=== PATIENT | male | born 1965 | race Caucasian/White ===

== ENCOUNTER 2018-05-09 16:05 | Outpatient (REF) | payer MEDICAID, SELFPAY ==
[2018-05-09 21:45] LABS: Anion Gap 9.2 mmol/L (3-11); BUN 14 mg/dL (7-18); CO2 28.8 mmol/L (21.0-32.0); CREATININE 1.41 mg/dL (0.70-1.30); Calcium 9.2 mg/dL (8.5-10.1); Chloride 98 mmol/L (98-107); Cholesterol 152 mg/dL (50-200); Estimated GFR 52.78 (mL/min/1.73m2); Glucose 94 mg/dL (70-100); HDL Cholesterol 32 mg/dL (40-60); LDL CHOLESTEROL 106 mg/dL (<100); Potassium 3.7 mmol/L (3.5-5.1); Sodium 136 mmol/L (136-145); TSH (W/Ref FT4) 5.53 uIU/mL (0.358-3.74); Triglyceride 113 mg/dL (30-150)
[2018-05-09 22:06] LABS: FREE T4 1.02 ng/dL (0.76-1.46)
== END 2018-05-09 16:25 ==
LOC: NCHCN 16:05
PROVIDERS: PCP Nurse Practitioner Family; Visit Provider Nurse Practitioner Family
DX: I10 Essential (primary) hypertension (principal); E03.9 Hypothyroidism, unspecified; R21 Rash and other nonspecific skin eruption; I87.8 Other specified disorders of veins; B35.1 Tinea unguium; Z86.718 Personal history of other venous thrombosis and embolism; E66.9 Obesity, unspecified; R06.83 Snoring
CPT/HCPCS: 80048; 80061; 83721; 84439; 84443

== ENCOUNTER 2019-04-19 21:51 | Outpatient (REF) | payer MEDICAID, SELFPAY ==
[2019-04-19 22:28] LABS: ALT 25 U/L (16-63); AST 18 U/L (15-37); Albumin 3.9 g/dL (3.4-5.0); Alkaline Phosphatase 96 U/L (46-116); Anion Gap 10.4 mmol/L (3-11); BUN 10 mg/dL (7-18); Bilirubin, Total 0.3 mg/dL (0.2-1.0); CO2 28.6 mmol/L (21.0-32.0); CREATININE 1.42 mg/dL (0.70-1.30); Calcium 9.3 mg/dL (8.5-10.1); Calculated LDL 57 mg/dL; Chloride 98 mmol/L (98-107); Cholesterol 111 mg/dL (50-200); Estimated GFR 52.15 (mL/min/1.73m2); Glucose 84 mg/dL (70-100); HDL Cholesterol 36 mg/dL (40-60); Potassium 3.6 mmol/L (3.5-5.1); Sodium 137 mmol/L (136-145); TSH (W/Ref FT4) 6.16 uIU/mL (0.36-3.74); Total Protein 8.1 g/dL (6.4-8.2); Triglyceride 91 mg/dL (30-150)
[2019-04-19 22:45] LABS: FREE T4 1.07 ng/dL (0.76-1.46)
== END 2019-04-19 22:11 ==
LOC: NCHCN 21:51
PROVIDERS: PCP Nurse Practitioner Family; Visit Provider Nurse Practitioner Family
DX: I10 Essential (primary) hypertension (principal); R06.09 Other forms of dyspnea; F32.9 Major depressive disorder, single episode, unspecified; F43.20 Adjustment disorder, unspecified; R06.83 Snoring; E03.9 Hypothyroidism, unspecified; Z86.718 Personal history of other venous thrombosis and embolism; M54.5 Low back pain
CPT/HCPCS: 80053; 80061; 83036; 84439; 84443

== ENCOUNTER 2019-06-28 10:26 | Outpatient (REF) | payer MEDICAID, SELFPAY ==
[2019-06-28 12:40] LABS: TSH (W/Ref FT4) 0.11 uIU/mL (0.36-3.74)
[2019-06-28 13:07] LABS: FREE T4 1.93 ng/dL (0.76-1.46)
== END 2019-06-28 10:46 ==
LOC: NCHCN 10:26
PROVIDERS: PCP Nurse Practitioner Family; Visit Provider Nurse Practitioner Family
DX: E03.9 Hypothyroidism, unspecified (principal); R73.03 Prediabetes; R06.09 Other forms of dyspnea; F32.9 Major depressive disorder, single episode, unspecified; F43.21 Adjustment disorder with depressed mood; R60.0 Localized edema; E66.9 Obesity, unspecified; M54.5 Low back pain
CPT/HCPCS: 84439; 84443

== ENCOUNTER 2019-08-06 10:16 | Outpatient (CLI) | payer MEDICAID, SELFPAY ==
[2019-08-06 11:43] LABS: ALT 21 U/L (16-63); AST 22 U/L (15-37); Albumin 3.6 g/dL (3.4-5.0); Alkaline Phosphatase 86 U/L (46-116); Anion Gap 8.3 mmol/L (3-11); BUN 15 mg/dL (7-18); Bilirubin, Total 0.3 mg/dL (0.2-1.0); CO2 31.7 mmol/L (21.0-32.0); CREATININE 1.43 mg/dL (0.70-1.30); Calcium 9.1 mg/dL (8.5-10.1); Calculated LDL 49 mg/dL (<100); Chloride 98 mmol/L (98-107); Cholesterol 97 mg/dL (<200); Estimated GFR 51.73 (mL/min/1.73m2); Glucose 93 mg/dL (74-106); HDL Cholesterol 30 mg/dL (40-60); Potassium 3.2 mmol/L (3.5-5.1); Sodium 138 mmol/L (136-145); Total Protein 7.5 g/dL (6.4-8.2); Triglyceride 91 mg/dL (<150)
== END 2019-08-06 10:36 ==
PROVIDERS: PCP Nurse Practitioner Family; Visit Provider Nurse Practitioner Family
DX: I10 Essential (primary) hypertension (principal); Z51.81 Encounter for therapeutic drug level monitoring; E03.9 Hypothyroidism, unspecified
CPT/HCPCS: 36415; 80053; 80061; 84443

== ENCOUNTER 2019-08-13 12:20 | Outpatient (CLI) | payer MEDICAID, SELFPAY ==
[2019-08-13 13:41] LABS: Potassium 3.7 mmol/L (3.5-5.1)
== END 2019-08-13 12:40 ==
PROVIDERS: PCP Nurse Practitioner Family; Visit Provider Nurse Practitioner Family
DX: E87.6 Hypokalemia (principal)
CPT/HCPCS: 36415; 84132

== ENCOUNTER 2019-12-14 16:19 | Outpatient (REF) | payer MEDICAID, SELFPAY ==
[2019-12-14 22:06] LABS: BUN 12 mg/dL (7-18); CREATININE 1.12 mg/dL (0.70-1.30); Calcium 9.5 mg/dL (8.5-10.1); Chloride 101 mmol/L (98-107); Glucose 93 mg/dL (74-106); Potassium 3.8 mmol/L (3.5-5.1); Sodium 137 mmol/L (136-145); TSH (W/Ref FT4) 4.75 uIU/mL (0.36-3.74)
[2019-12-14 22:24] LABS: FREE T4 1.05 ng/dL (0.76-1.46)
[2019-12-17 10:36] LABS: Hepatitis C Ab w Rflx HCV PCR Negative (Negative)
[2019-12-17 10:38] LABS: HIV-1/2 Ag & Ab Screen Negative (Negative)
== END 2019-12-14 16:39 ==
LOC: NCHCN 16:19
PROVIDERS: PCP Nurse Practitioner Family; Visit Provider Nurse Practitioner Family
DX: E03.9 Hypothyroidism, unspecified (principal); E87.6 Hypokalemia; R73.03 Prediabetes; R06.09 Other forms of dyspnea; F32.9 Major depressive disorder, single episode, unspecified; I10 Essential (primary) hypertension; Z11.59 Encounter for screening for other viral diseases; Z11.4 Encounter for screening for human immunodeficiency virus [HIV]
CPT/HCPCS: 80048; 86803; 87389; 84439; 84443

== ENCOUNTER 2020-06-19 14:01 | Outpatient (REF) | payer MEDICAID, SELFPAY ==
[2020-06-19 21:34] LABS: ALT 40 U/L (16-63); AST 22 U/L (15-37); Albumin 3.9 g/dL (3.4-5.0); Alkaline Phosphatase 79 U/L (46-116); Anion Gap 8.1 mmol/L (3-11); BUN 16 mg/dL (7-18); Bilirubin, Total 0.4 mg/dL (0.2-1.0); CO2 28.9 mmol/L (21.0-32.0); CREATININE 1.19 mg/dL (0.70-1.30); Calcium 9.2 mg/dL (8.5-10.1); Chloride 101 mmol/L (98-107); Glucose 95 mg/dL (74-106); Potassium 3.3 mmol/L (3.5-5.1); Sodium 138 mmol/L (136-145); TSH (W/Ref FT4) 5.28 uIU/mL (0.36-3.74); Total Protein 7.7 g/dL (6.4-8.2)
[2020-06-19 21:44] LABS: Hemoglobin A1C 5.8 % (<5.7)
[2020-06-19 21:54] LABS: FREE T4 1.04 ng/dL (0.76-1.46)
== END 2020-06-19 14:21 ==
LOC: NCHCN 14:01
PROVIDERS: PCP Nurse Practitioner Family; Visit Provider Nurse Practitioner Family
DX: E03.9 Hypothyroidism, unspecified (principal); I10 Essential (primary) hypertension; E87.6 Hypokalemia; N28.9 Disorder of kidney and ureter, unspecified; R73.03 Prediabetes; F32.9 Major depressive disorder, single episode, unspecified; E66.9 Obesity, unspecified
CPT/HCPCS: 80053; 83036; 84439; 84443

== ENCOUNTER 2020-12-11 13:57 | Outpatient (REF) | payer MEDICAID, SELFPAY ==
[2020-12-11 20:54] LABS: Hemoglobin A1C 5.8 % (<5.7)
[2020-12-11 21:08] LABS: Anion Gap 10.8 mmol/L (3-11); BUN 15 mg/dL (7-18); CO2 29.2 mmol/L (21.0-32.0); CREATININE 1.2 mg/dL (0.70-1.30); Calcium 9.6 mg/dL (8.5-10.1); Chloride 101 mmol/L (98-107); Glucose 92 mg/dL (74-106); Potassium 3.5 mmol/L (3.5-5.1); Sodium 141 mmol/L (136-145); TSH (W/Ref FT4) 4.84 uIU/mL (0.36-3.74)
== END 2020-12-11 13:58 | disposition home or self-care (01) ==
LOC: NCHCN 13:57
PROVIDERS: PCP Nurse Practitioner Family; Visit Provider Nurse Practitioner Family
DX: E78.6 Lipoprotein deficiency (principal); N28.9 Disorder of kidney and ureter, unspecified; E87.6 Hypokalemia; R73.03 Prediabetes; F32.9 Major depressive disorder, single episode, unspecified; I10 Essential (primary) hypertension; E03.9 Hypothyroidism, unspecified
CPT/HCPCS: 80048; 83036; 84439; 84443

== ENCOUNTER 2021-07-16 10:56 | Outpatient (REF) | payer MEDICAID, SELFPAY ==
[2021-07-16 15:26] LABS: Hemoglobin A1C 5.9 % (<5.7)
[2021-07-16 16:09] LABS: ALT 30 U/L (16-63); AST 18 U/L (15-37); Alkaline Phosphatase 70 U/L (46-116); Anion Gap 7.4 mmol/L (3-11); BUN 19 mg/dL (7-18); Bilirubin, Total 0.3 mg/dL (0.2-1.0); CO2 31.6 mmol/L (21.0-32.0); CREATININE 1.4 mg/dL (0.70-1.30); Calcium 9.6 mg/dL (8.5-10.1); Chloride 99 mmol/L (98-107); Estimated GFR 52.62 (mL/min/1.73m2); Glucose 92 mg/dL (74-106); Potassium 3.3 mmol/L (3.5-5.1); Sodium 138 mmol/L (136-145); TSH (W/Ref FT4) 3.94 uIU/mL (0.36-3.74); Total Protein 7.8 g/dL (6.4-8.2)
[2021-07-16 16:40] LABS: FREE T4 1.02 ng/dL (0.76-1.46)
== END 2021-07-16 10:57 | disposition home or self-care (01) ==
LOC: NCHCN 10:56
PROVIDERS: PCP Nurse Practitioner Family; Visit Provider Nurse Practitioner Family
DX: I10 Essential (primary) hypertension (principal); R73.03 Prediabetes; E78.6 Lipoprotein deficiency; F32.9 Major depressive disorder, single episode, unspecified; N28.9 Disorder of kidney and ureter, unspecified
CPT/HCPCS: 80053; 83036; 84439; 84443

== ENCOUNTER 2021-07-30 10:23 | Outpatient (REF) | payer MEDICAID, SELFPAY ==
[2021-07-30 14:14] LABS: Anion Gap 6.1 mmol/L (3-11); BUN 16 mg/dL (7-18); CO2 31.9 mmol/L (21.0-32.0); CREATININE 1.3 mg/dL (0.70-1.30); Calcium 9.2 mg/dL (8.5-10.1); Chloride 102 mmol/L (98-107); Estimated GFR 57.31 (mL/min/1.73m2); Glucose 101 mg/dL (74-106); Potassium 3.9 mmol/L (3.5-5.1); Sodium 140 mmol/L (136-145)
== END 2021-07-30 10:24 | disposition home or self-care (01) ==
LOC: NCHCN 10:23
PROVIDERS: PCP Nurse Practitioner Family; Visit Provider Nurse Practitioner Family
DX: E87.6 Hypokalemia (principal)
CPT/HCPCS: 80048

== ENCOUNTER 2022-02-05 09:02 | Outpatient (REF) | payer MEDICAID, SELFPAY ==
[2022-02-05 19:12] LABS: Anion Gap 10.3 mmol/L (3-11); BUN 17 mg/dL (7-18); CO2 29.7 mmol/L (21.0-32.0); CREATININE 1.4 mg/dL (0.70-1.30); Calcium 8.9 mg/dL (8.5-10.1); Chloride 101 mmol/L (98-107); Estimated GFR 58.99 (mL/min/1.73m2); Glucose 112 mg/dL (74-106); Potassium 3.4 mmol/L (3.5-5.1); Sodium 141 mmol/L (136-145); TSH (W/Ref FT4) 4.99 uIU/mL (0.36-3.74)
[2022-02-05 19:31] LABS: FREE T4 1.02 ng/dL (0.76-1.46)
== END 2022-02-05 09:03 | disposition home or self-care (01) ==
LOC: NCHCN 09:02
PROVIDERS: PCP Nurse Practitioner Family; Visit Provider Nurse Practitioner Family
DX: I10 Essential (primary) hypertension (principal); R73.03 Prediabetes; E78.6 Lipoprotein deficiency; N28.9 Disorder of kidney and ureter, unspecified; F32.9 Major depressive disorder, single episode, unspecified; E66.9 Obesity, unspecified; R60.0 Localized edema
CPT/HCPCS: 80048; 84439; 84443

== ENCOUNTER 2022-09-28 12:38 | Outpatient (REF) | payer MEDICAID, SELFPAY ==
[2022-09-28 15:08] LABS: Hemoglobin A1C 5.8 % (<5.7)
[2022-09-28 15:34] LABS: Anion Gap 8.9 mmol/L (3-11); BUN 14 mg/dL (7-18); CO2 32.1 mmol/L (21.0-32.0); CREATININE 1.4 mg/dL (0.70-1.30); Calcium 9.4 mg/dL (8.5-10.1); Chloride 100 mmol/L (98-107); Estimated GFR 58.99 (mL/min/1.73m2); Glucose 131 mg/dL (74-106); Potassium 3.4 mmol/L (3.5-5.1); Sodium 141 mmol/L (136-145); TSH (W/Ref FT4) 5.74 uIU/mL (0.36-3.74)
[2022-09-28 15:56] LABS: FREE T4 1.04 ng/dL (0.76-1.46)
== END 2022-09-28 12:39 | disposition home or self-care (01) ==
LOC: NCHCN 12:38
PROVIDERS: PCP Nurse Practitioner Family; Visit Provider Nurse Practitioner Family
DX: N18.31 Chronic kidney disease, stage 3a (principal); E87.6 Hypokalemia; R73.03 Prediabetes; E03.9 Hypothyroidism, unspecified; I10 Essential (primary) hypertension; F32.89 Other specified depressive episodes; E78.6 Lipoprotein deficiency
CPT/HCPCS: 80048; 83036; 84439; 84443

== ENCOUNTER 2023-08-01 04:12 | Outpatient (CLI) | payer MEDICAID, SELFPAY ==
[2023-08-01 14:13] LABS: Hemoglobin A1C 5.9 % (<5.7)
[2023-08-01 14:34] LABS: TSH (W/Ref FT4) 4.71 uIU/mL (0.36-3.74)
[2023-08-01 14:56] LABS: FREE T4 0.89 ng/dL (0.76-1.46)
== END 2023-08-01 04:13 | disposition home or self-care (01) ==
LOC: LBO 04:12
PROVIDERS: PCP Nurse Practitioner Family; Visit Provider Nurse Practitioner Family
DX: R73.03 Prediabetes (principal); E03.9 Hypothyroidism, unspecified
CPT/HCPCS: 36415; 83036; 84439; 84443

== ENCOUNTER 2023-08-31 04:48 | Outpatient (CLI) | payer MEDICAID, SELFPAY ==
[2023-08-31 17:25] LABS: ALT 31 U/L (16-63); AST 19 U/L (15-37); Albumin 3.7 g/dL (3.4-5.0); Alkaline Phosphatase 71 U/L (46-116); BUN 15 mg/dL (7-18); Bilirubin, Total 0.2 mg/dL (0.2-1.0); CREATININE 1.5 mg/dL (0.70-1.30); Calcium 9.3 mg/dL (8.5-10.1); Calculated LDL 37 mg/dL (<100); Chloride 101 mmol/L (98-107); Cholesterol 104 mg/dL (<200); Estimated GFR 53.96 (mL/min/1.73m2); Glucose 101 mg/dL (74-106); HDL Cholesterol 46 mg/dL (40-60); Sodium 140 mmol/L (136-145); Total Protein 7.5 g/dL (6.4-8.2); Triglyceride 105 mg/dL (<150)
== END 2023-08-31 04:49 | disposition home or self-care (01) ==
PROVIDERS: PCP Nurse Practitioner Family; Visit Provider Nurse Practitioner Family
DX: I10 Essential (primary) hypertension (principal); E78.6 Lipoprotein deficiency
CPT/HCPCS: 36415; 80053; 80061

== ENCOUNTER 2023-09-16 01:15 | Outpatient (CLI) | payer MEDICAID, SELFPAY ==
[2023-09-16 12:50] LABS: ALT 29 U/L (16-63); AST 18 U/L (15-37); Albumin 3.7 g/dL (3.4-5.0); Alkaline Phosphatase 69 U/L (46-116); Anion Gap 8.7 mmol/L (3-11); BUN 16 mg/dL (7-18); Bilirubin, Total 0.3 mg/dL (0.2-1.0); CO2 28.3 mmol/L (21.0-32.0); CREATININE 1.3 mg/dL (0.70-1.30); Calcium 8.8 mg/dL (8.5-10.1); Calculated LDL 57 mg/dL (<100); Chloride 105 mmol/L (98-107); Cholesterol 115 mg/dL (<200); Estimated GFR 64.07 (mL/min/1.73m2); Glucose 77 mg/dL (74-106); HDL Cholesterol 43 mg/dL (40-60); Potassium 3.6 mmol/L (3.5-5.1); Sodium 142 mmol/L (136-145); Total Protein 7.4 g/dL (6.4-8.2); Triglyceride 76 mg/dL (<150)
== END 2023-09-16 01:16 | disposition home or self-care (01) ==
LOC: LBO 01:16
PROVIDERS: PCP Nurse Practitioner Family; Visit Provider Nurse Practitioner Family
DX: I10 Essential (primary) hypertension (principal); E78.6 Lipoprotein deficiency
CPT/HCPCS: 36415; 80053; 80061

== ENCOUNTER 2024-03-19 03:06 | Outpatient (CLI) | payer MEDICAID, SELFPAY ==
[2024-03-19 13:08] LABS: Hemoglobin A1C 5.6 % (<5.7)
[2024-03-19 13:26] LABS: BUN 9 mg/dL (7-18); CREATININE 1.3 mg/dL (0.70-1.30); Calcium 9.3 mg/dL (8.5-10.1); Chloride 107 mmol/L (98-107); Estimated GFR 63.68 (mL/min/1.73m2); Glucose 88 mg/dL (74-106); Potassium 3.5 mmol/L (3.5-5.1); Sodium 144 mmol/L (136-145)
== END 2024-03-19 03:07 | disposition home or self-care (01) ==
LOC: LBO 03:06
PROVIDERS: PCP Nurse Practitioner Family; Visit Provider Nurse Practitioner Family
DX: I10 Essential (primary) hypertension (principal); R73.03 Prediabetes; E66.9 Obesity, unspecified
CPT/HCPCS: 36415; 80048; 83036

== ENCOUNTER 2024-09-03 13:26 | Outpatient (REF) | payer MEDICAID, SELFPAY ==
[2024-09-03 15:57] LABS: ALT 40 U/L (16-63); AST 25 U/L (15-37); Albumin 3.8 g/dL (3.4-5.0); Alkaline Phosphatase 71 U/L (46-116); Anion Gap 5.8 mmol/L (3-11); BUN 14 mg/dL (7-18); Bilirubin, Total 0.3 mg/dL (0.2-1.0); CO2 30.2 mmol/L (21.0-32.0); CREATININE 1.1 mg/dL (0.70-1.30); Calcium 9.6 mg/dL (8.5-10.1); Chloride 105 mmol/L (98-107); Estimated GFR 77.81 (mL/min/1.73m2); Glucose 99 mg/dL (74-106); Potassium 4.3 mmol/L (3.5-5.1); Sodium 141 mmol/L (136-145); TSH (W/Ref FT4) 6.87 uIU/mL (0.36-3.74); Total Protein 7.4 g/dL (6.4-8.2)
[2024-09-03 18:34] LABS: FREE T4 0.93 ng/dL (0.76-1.46)
== END 2024-09-03 13:27 | disposition home or self-care (01) ==
LOC: NCHCN 13:26
PROVIDERS: PCP Nurse Practitioner Family; Visit Provider Nurse Practitioner Family
DX: I10 Essential (primary) hypertension (principal); E03.9 Hypothyroidism, unspecified
CPT/HCPCS: 80053; 84439; 84443

== ENCOUNTER 2025-03-05 17:28 | Outpatient (REF) | payer MEDICAID, SELFPAY ==
[2025-03-05 15:20] LABS: Hemoglobin A1C 5.7 % (<5.7)
[2025-03-05 15:33] LABS: Anion Gap 9.9 mmol/L (3-11); BUN 14 mg/dL (7-18); CO2 29.1 mmol/L (21.0-32.0); Calcium 9.3 mg/dL (8.5-10.1); Chloride 102 mmol/L (98-107); Estimated GFR 69.66 (mL/min/1.73m2); Glucose 98 mg/dL (74-106); Potassium 4.0 mmol/L (3.5-5.1); Sodium 141 mmol/L (136-145)
== END 2025-03-05 17:29 | disposition home or self-care (01) ==
LOC: NCHCN 17:28
PROVIDERS: PCP Nurse Practitioner Family; Visit Provider Nurse Practitioner Family
DX: E11.69 Type 2 diabetes mellitus with other specified complication (principal); I10 Essential (primary) hypertension
CPT/HCPCS: 80048; 83036